=== PATIENT | male | born 1955 | race Native Hawaiian/Other Pacific Islander ===

== ENCOUNTER 2017-09-21 00:35 | Emergency (ER) | payer BC, OTHER ==
[2017-09-21 00:37] VITALS: BMI 23.8
[2017-09-21 00:49] VITALS: RESP 18
[2017-09-21] MEDS ORDERED: Promethazine/Cod 6.25mg-10mg/5ml Syr UD PO STA (01:28)
[2017-09-21] MEDS: Albuterol 0.083% Inhal Sol (2.5 mg/3 mL) UD INH SCH ×2 (01:30→01:47)
[2017-09-21] MEDS ORDERED: Promethazine/Cod 6.25mg-10mg/5ml Syr UD ONE (01:36)
[2017-09-21] MEDS ORDERED: Albuterol 0.083% Inhal Sol (2.5 mg/3 mL) UD ONE ×2 (01:45→01:56)
--- NOTE | 2017-09-21 02:26 | C.PDOC ---
History Of Present Illness 62 year old male presents to the ED c/o chest congestion, cough for the past 2 days. Patient reports symptoms worsened today, cough is persistent. Patient reports brief episode of chest tightness when coughing. Patient denies fever, chills, nausea, vomiting, SOB. Time Seen by Provider: 09/21/17 01:18 Chief Complaint (Nursing): Cough, Cold, Congestion History Per: Patient History/Exam Limitations: no limitations Onset/Duration Of Symptoms: Days (2) Current Symptoms Are (Timing): Still Present Location Of Pain: Sinus/es Sick Contacts (Context): None Associated Symptoms: Cough, Nasal Congestion. denies: Fever Ear Symptoms: Bilateral: None Recent travel outside of the [place]: No Additional History Per: Patient Past Medical History Reviewed: Historical Data, Nursing Documentation, Vital Signs Vital Signs: Last Vital Signs Temp 98 F 09/21/17 02:31 Pulse 89 09/21/17 02:31 Resp 18 09/21/17 02:31 BP 126/73 09/21/17 02:31 Pulse Ox 95 09/21/17 03:02 - Medical History PMH: HTN, Hypercholesterolemia Denies: Chronic Kidney Disease Surgical History: No Surg Hx Family History: States: Unknown Family Hx - Social History Hx Alcohol Use: No Hx Substance Use: No - Immunization History Hx Tetanus Toxoid Vaccination: No Hx Influenza Vaccination: Yes Hx Pneumococcal Vaccination: No Review Of Systems Constitutional: Negative for: Fever, Chills ENT: Positive for: Nose Congestion. Negative for: Nose Discharge, Throat Pain Cardiovascular: Negative for: Chest Pain, Palpitations Respiratory: Positive for: Cough. Negative for: Shortness of Breath Gastrointestinal: Negative for: Nausea, Vomiting Skin: Negative for: Rash Physical Exam - Physical Exam Appears: Non-toxic, No Acute Distress Skin: Normal Color, Warm, Dry Head: Atraumatic, Normacephalic Eye(s): bilateral: Normal Inspection Ear(s): Bilateral: Normal Nose: No Discharge Oral Mucosa: Moist Neck: Normal ROM, Supple Chest: Symmetrical Cardiovascular: Rhythm Regular Respiratory: Normal Breath Sounds, No Rales, No Rhonchi, No Wheezing, Other ( minimal congestion) Gastrointestinal/Abdominal: Soft, No Tenderness, No Guarding, No Rebound Extremity: Normal ROM, No Tenderness, No Swelling Neurological/Psych: Oriented x3, Normal Speech Gait: Steady ED Course And Treatment O2 Sat by Pulse Oximetry: 95 (ON RA) Pulse Ox Interpretation: Normal - Radiology CXR: Interpreted by Me, Viewed By Me CXR Interpretation: Yes: No Acute Disease. No: Infiltrates Progress Note: Plan: - CXR. - Albiterol Neb X2. - Phenergan/codeine PO. - Prednisone PO. On reassessment, patient is resting comfortably, and is in no acute distress. Patient was instructed to follow up with physician/clinic in 1- 2 days for further evaluation. Return precautions were given Disposition Counseled Patient/Family Regarding: Diagnosis, Need For Followup - Disposition Referrals: Khai Crawford MD [Primary Care Provider] - Disposition: HOME/ ROUTINE Disposition Time: 02:24 Condition: STABLE Additional Instructions: Please follow up with PMD in 2 days Increase PO fluids Take medications as prescibed return to ER if worse Prescriptions: Benzonatate [Tessalon Perles] 100 mg PO TID #20 sgl Cetirizine HCl [Zyrtec] 10 mg PO DAILY #20 capsule predniSONE [Prednisone] 40 mg PO DAILY #6 tab Instructions: Upper Respiratory Infection (ED) Forms: [employer] ([place]), Work Excuse - Clinical Impression Clinical Impression: Upper respiratory infection - PA / HOME OFFICE CLAIM SPECIALIST / Resident Statement MD/DO has reviewed & agrees with the documentation as recorded. - Scribe Statement The provider has reviewed the documentation as recorded by the Scribe David Ryan All medical record entries made by the Scribe were at my direction and personally dictated by me. I have reviewed the chart and agree that the record accurately reflects my personal performance of the history, physical exam, medical decision making, and the department course for this patient. I have also personally directed, reviewed, and agree with the discharge instructions and disposition.
[2017-09-21 02:32] VITALS: BP 126/73; PULSE 89; TEMP 98
[2017-09-21 02:59] VITALS: O2SAT 95
== END 2017-09-21 02:32 | disposition home or self-care (01) ==
LOC: SUPCPDRO 00:35 → C.ER 00:35
DX: J06.9 Acute upper respiratory infection, unspecified (principal); I10 Essential (primary) hypertension; E78.00 Pure hypercholesterolemia, unspecified

== ENCOUNTER 2018-07-24 07:39 | Outpatient (CLI) | payer OTHER | END 2018-07-24 07:40 | disposition home or self-care (01) | LOC: C.LAB 07:39 | DX: I10 Essential (primary) hypertension (principal); Z00.00 Encounter for general adult medical examination without abnormal findings ==